=== PATIENT | female | born 1975 | race Caucasian/White ===

== ENCOUNTER 2020-07-24 20:00 | Outpatient (CLI) | payer OTHER, SELFPAY | END 2020-07-24 20:01 | disposition home or self-care (01) | LOC: SLEEP 07-25 09:20 | PROVIDERS: Family Provider Family Medicine; Visit Provider Family Medicine | DX: G47.10 Hypersomnia, unspecified (principal); G47.33 Obstructive sleep apnea (adult) (pediatric) | CPT/HCPCS: 95810 ==

== ENCOUNTER 2020-09-02 20:00 | Outpatient (CLI) | payer OTHER, SELFPAY | END 2020-09-02 20:01 | disposition home or self-care (01) | LOC: SLEEP 09-03 09:40 | PROVIDERS: Family Provider Family Medicine; Visit Provider Family Medicine | DX: G47.33 Obstructive sleep apnea (adult) (pediatric) (principal) | CPT/HCPCS: 95811 ==

== ENCOUNTER 2020-11-25 08:28 | Outpatient (CLI) | payer OTHER, SELFPAY ==
--- NOTE | 2020-11-25 08:31 | MM_ITS ---
WS: [id number] BILATERAL DIGITAL DIAGNOSTIC MAMMOGRAM MAMMOGRAPHY WITH CAD CLINICAL INFORMATION: DENSE BREASTS;RIGHT BREAST PAIN COMPARISON: None. TECHNIQUE: Bilateral CC, MLO, and ML views. FINDINGS: Scattered fibroglandular densities bilaterally. 6 mm ovoid density upper outer right breast may repre sent a cyst or lymph node but nonspecific. No comparisons available. Recommend further evaluation wit h ultrasound. Left breast is unremarkable. Incidental punctate and clustered calcifications left breast. MM/[place] [id number] IMPRESSION: BI-RADS: 0-Incomplete: Need additional imaging evaluation FOLLOW UP: Need Additional Imaging RECOMMEND ULTRASOUND EVALUATION OF THE 6 MM ASYMMETRIC DENSITY UPPER OUTER RIGH T BREAST.
== END 2020-11-25 08:29 | disposition home or self-care (01) ==
LOC: RADSHAW 08:29
PROVIDERS: PCP Family Medicine; Visit Provider Family Medicine
DX: N64.4 Mastodynia (principal); N64.89 Other specified disorders of breast
CPT/HCPCS: 77066

== ENCOUNTER 2020-12-19 06:55 | Outpatient (CLI) | payer OTHER, SELFPAY ==
--- NOTE | 2020-12-19 07:30 | US_ITS ---
WS: [id number] ULTRASOUND BREAST RIGHT TECHNIQUE: Ultrasound right breast focused area of concern. CLINICAL INFORMATION: DENSE BREAST;RIGHT BREAST PAIN COMPARISON: November 25, 2020 FINDINGS: Ultrasound upper outer quadrant right breast. A benign areas of ductal ectasia in the area of concern 10:00 position. No suspicious lesions. No lesions to target for biopsy. Findings are benign. US/US breast RT limited* [id number] IMPRESSION: BI-RADS 2 benign Recommend return to annual screening mammography.
== END 2020-12-19 06:56 | disposition home or self-care (01) ==
LOC: RAD 06:58
PROVIDERS: PCP Family Medicine; Visit Provider Family Medicine
DX: N64.4 Mastodynia (principal); R92.2 Inconclusive mammogram
CPT/HCPCS: 76642

== ENCOUNTER → 2023-01-08 09:49 | Outpatient (BNVA) | payer OTHER, SELFPAY | PROVIDERS: PCP Family Medicine; Referring Provider Physician Assistant; Visit Provider Podiatrist Foot & Ankle Surgery | DX: M72.2 Plantar fascial fibromatosis (principal); M21.6X1 Other acquired deformities of right foot; M21.6X2 Other acquired deformities of left foot | CPT/HCPCS: 73630 ==

== ENCOUNTER 2024-02-29 16:10 | Outpatient (CLI) | payer OTHER, SELFPAY | END 2024-02-29 16:11 | disposition home or self-care (01) | LOC: SPT 16:10 | PROVIDERS: PCP Family Medicine; Visit Provider Podiatrist Foot & Ankle Surgery | DX: Z46.89 Encounter for fitting and adjustment of other specified devices (principal); M79.671 Pain in right foot | CPT/HCPCS: L4397 ==

== ENCOUNTER 2024-09-01 12:37 | Outpatient (CLI) | payer OTHER, SELFPAY ==
--- NOTE | 2024-09-01 12:41 | MR_ITS ---
WS: [id number] MRI RIGHT KNEE HISTORY: PAIN OF R KNEE COMPARISON: None available. Anterior cruciate ligament: Intact. Posterior cruciate ligament: Intact. Medial collateral ligament: Partially extruded meniscus with slight displacement of the MCL. No MCL t ear. Posterior lateral corner structures: Intact. Medial menisci: Anterior horn is normal. Horizontal tear posterior horn extends to the inferior artic ular surface. Lateral meniscus: Intact. Normal signal, size and shape. Extensor mechanism: Distal quadriceps tendon and patellar tendons are intact. Fluid and soft tissue: None. Small Dill's cyst. Osseous and articular structures: Patellofemoral compartment: Normal. Medial compartment: Mild narrowing of the medial compartment with focal minimal thinning and fissurin g of the cartilage along the weightbearing surface of the femoral condyle and tibial plateau. No kassandra ow edema or full-thickness cartilage defect. Lateral compartment: Minimal narrowing of the joint space. Full-thickness 4 mm cartilage defect along the weightbearing surface of the femoral condyle. No underlying marrow edema. MR/MR knee RT wo con* [id number] IMPRESSION: 1. Horizontal tear posterior horn medial meniscus extends to the inferior eri cular surface. 2. Small Dill's cyst. 3. Mild thinning and fissuring along the weightbearing surface of the cartilag e of the medial compartment. 4. 4 mm full-thickness cartilage defect weightbearing surface of the lateral f emoral condyle.
--- NOTE | 2024-09-01 12:41 | MR_ITS ---
WS: [id number] MRI RIGHT SHOULDER HISTORY: R SHOULDER PAIN COMPARISON: None available. TECHNIQUE: Multiplanar sequences of the shoulder joint are submitted. Moderate AC joint hypertrophy. Hypertrophic osteophytes encroach upon the myotendinous portion of the supraspinatus with deformity. No significant amount of fluid in the subacromial or subdeltoid bursa. Minimal subacromial impingement. No os acromion. Biceps tendon in normal position in the bicipital g roove. There is a split tear in the biceps tendon at the bicipital groove. Split tear extends over a short focal segment. Slightly high riding humeral head and the glenoid. No muscle atrophy or edema. There is moderate thic kening of the distal supraspinatus tendon with intermediate signal. Also a very small insertion site tear of the supraspinatus. Additional mild distal subscapularis tendinopathy. The infraspinatus tendo n is normal. Mildly heterogeneous signal in the labrum. No labral tear. Normal coracohumeral ligament . MR/MR shoulder RT wo con* [id number] IMPRESSION: 1. Moderate AC joint hypertrophy with encroachment upon the myotendinous porti on of the supraspinatus. 2. Moderate tendinopathy of the distal supraspinatus tendon. There is also a v maría small insertion site tear of the supraspinatus. 3. Focal split tear biceps tendon in the bicipital groove. 4. Mild distal subscapularis tendinopathy.
== END 2024-09-01 12:38 | disposition home or self-care (01) ==
LOC: RAD 12:39
PROVIDERS: PCP Family Medicine; Visit Provider Family Medicine
DX: S46.211A Strain of muscle, fascia and tendon of other parts of biceps, right arm, initial encounter (principal); M89.311 Hypertrophy of bone, right shoulder; M75.80 Other shoulder lesions, unspecified shoulder; X58.XXXA Exposure to other specified factors, initial encounter; M23.221 Derangement of posterior horn of medial meniscus due to old tear or injury, right knee; M71.21 Synovial cyst of popliteal space [Baker], right knee; S83.31XA Tear of articular cartilage of right knee, current, initial encounter
CPT/HCPCS: 73221; 73721